=== PATIENT | female | born 1970 | race Caucasian/White ===

== ENCOUNTER 2017-03-11 23:07 | Emergency (ER) | payer MEDICAID ==
[~2017-03-11] VITALS: Ht 162.6 cm; Wt 79.4 kg
[2017-03-12] MEDS ORDERED: APAP/CODEINE 300/30MG TABLET PO PRN
[2017-03-12] MEDS ORDERED: ALBUTEROL/IPRATROPIUM 2.5MG/0.5MG, 3 ML NPPB ONE
[2017-03-12] MEDS ORDERED: ALBUTEROL/IPRATROPIUM 2.5MG/0.5MG, 3 ML ONE (00:05)
[2017-03-12 01:20] VITALS: BP 120/73
== END 2017-03-12 01:24 | disposition home or self-care (01) ==
LOC: ED 23:59
DX: J20.9 Acute bronchitis, unspecified (principal); F17.200 Nicotine dependence, unspecified, uncomplicated; Z88.8 Allergy status to other drugs, medicaments and biological substances
CPT/HCPCS: 71020; 93005; 94640; 99284; J7512; J7620